=== PATIENT | male | born 2000 | race African-American/Black ===

== ENCOUNTER 2021-11-29 12:46 | Emergency (ER) | payer OTHER, SELFPAY ==
[2021-11-29 13:31] VITALS: BP 140/81; PULSE 92; RESP 18; TEMP 36.6; O2SAT 100
[2021-11-29] MEDS: metroNIDAZOLE 250 MG TABLET 2000 MG PO (14:36)
[2021-11-29] MEDS: cefTRIAXone 1 GM VIAL 0.5 GM IM (14:38)
[2021-11-29] MEDS: LIDOCAINE HCL 1% LOCAL INJ 20 ML VIAL 2.1 ML XX (14:38)
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
== END 2021-11-29 15:20 | disposition home or self-care (01) ==
PROVIDERS: Emergency Provider Emergency Medicine
DX: M54.2 Cervicalgia (principal); N34.2 Other urethritis
CPT/HCPCS: 96372; 99283; A9270; J0696